=== PATIENT | male | born 1965 | race Hispanic/Latino ===

== ENCOUNTER 2016-05-11 11:43 | Emergency (ER) | payer MEDICAID ==
[2016-05-11 12:55] VITALS: BP 155/88
--- NOTE | 2016-05-11 16:39 | Emergency Department Report ---
Upper Extremity - [facility] Chief Complaint: Extremity Injury, Upper Stated Complaint: RT SHOULDER PAIN Upper Extremity: Right Shoulder Occurred When: Today Mechanism: Fall (50-year-old male that's challenged comes in for complaint of right shoulder pain status post fall this morning. He is brought in by his caregiver. Caregiver reports that the mother gave her reports that he had fallen now comes in with right shoulder pain.) ED Review of Systems ROS: Stated complaint: RT SHOULDER PAIN Other details as noted in HPI ED Past Medical Hx - Past Medical History Hx Seizures: Yes Additional medical history: spinal meningitis as a child - Surgical History Additional Surgical History: surgery to straighten right wrist as a teenager - Social History Smoking Status: Never Smoker Substance Use Type: None - Medications Home Medications: Home Medications Medication Instructions Recorded Confirmed Last Taken Type Divalproex ER [Depakote ER] 500 mg PO BID 03/22/13 11/09/15 11/09/15 History FLUoxetine [Prozac] 20 mg PO QDAY 03/22/13 11/09/15 11/09/15 History Hydrochlorothiazide 25 mg PO DAILY 03/22/13 11/09/15 11/09/15 History Lovastatin [Mevacor] 20 mg PO QPM 03/22/13 11/09/15 11/09/15 History OXcarbazepine [Trileptal] 900 mg PO BID 03/22/13 11/09/15 11/09/15 History risperiDONE [RisperDAL] 3 mg PO BID 03/22/13 11/09/15 11/09/15 History Ibuprofen [Motrin] 600 mg PO Q8H PRN #15 tablet 09/23/15 11/09/15 Unknown Rx Cephalexin [Keflex] 500 mg PO BID #10 capsule 11/10/15 Unknown Rx Upper Extremity Exam - Exam General: Vital signs noted. No distress. Alert and acting appropriately. Head and Torso: No HEENT Abnormality, No Neck Tenderness, No Chest/Lungs Abnormality, No Abdominal Tenderness, No Back Tenderness Shoulder Exam: Yes Shoulder Tenderness, Yes Clavicle Tenderness, Yes Shoulder Deformity, Yes AC Joint Tenderness, No Normal Range of Motion in Shoulder Forearm: No Forearm Tenderness Hand: Yes Hand Deformity (baseline contractions), No Hand Tenderness, No Normal ROM in Digit(s) (baseline contractions) CMS Exam: Yes Normal Distal Pulses, Yes Normal Capillary Refill, Yes Normal Distal Sensation, No Broken Skin ED Course Vital Signs 05/11/16 12:52 Temperature 98 F Pulse Rate 118 H Respiratory 18 Rate Blood Pressure 155/88 O2 Sat by Pulse 100 Oximetry ED Medical Decision Making - Radiology Data Radiology results: image reviewed FINAL REPORT PROCEDURE: XR SHOULDER 2 RT TECHNIQUE: Right shoulder, 2 views HISTORY: rt shoulder pain s/p fall COMPARISON: No prior studies are available for comparison. FINDINGS: No acute fracture or dislocation is seen. No focal osseous lesion is seen. IMPRESSION: No acute fracture or dislocation is identified - Medical Decision Making Patient's been evaluated by this provider in fast track. There is some obvious deformity of the right shoulder will go ahead and do an shoulder x-ray. When patient returns we'll offer pain management. Heart rates 94 Critical care attestation.: If time is entered above; I have spent that time in minutes in the direct care of this critically ill patient, excluding procedure time. ED Disposition Clinical Impression: Shoulder pain, right Qualifiers: Chronicity: acute Qualified Code(s): M25.511 - Pain in right shoulder Disposition: DISCHARGED TO HOME OR SELFCARE Is pt being admited?: No Does the pt Need Aspirin: No Condition: Stable Instructions: Fall Prevention for Older Adults (ED), Arthralgia (ED) Additional Instructions: Follow up with your Primary care provider
[2016-05-11] MEDS ORDERED: MOTRIN PO ONE (17:30)
--- NOTE | 2016-05-11 19:02 | XRay Report ---
FINAL REPORT PROCEDURE: XR SHOULDER 2 RT TECHNIQUE: Right shoulder, 2 views HISTORY: rt shoulder pain s/p fall COMPARISON: No prior studies are available for comparison. FINDINGS: No acute fracture or dislocation is seen. No focal osseous lesion is seen. IMPRESSION: No acute fracture or dislocation is identified
== END 2016-05-11 19:25 | disposition home or self-care (01) ==
LOC: ED 11:43
DX: M25.511 Pain in right shoulder (principal); R56.9 Unspecified convulsions
CPT/HCPCS: 99283

== ENCOUNTER 2017-10-16 11:39 | Emergency (ER) | payer MEDICAID ==
[2017-10-16 11:53] VITALS: BP 104/80
[2017-10-16] MEDS ORDERED: BOOSTRIX IM ONE (14:19)
[2017-10-16] MEDS ORDERED: XYLOCAINE 2% INFILTRATI ONE (14:20)
--- NOTE | 2017-10-16 14:25 | Emergency Department Report ---
ED Laceration HPI - HPI Chief Complaint: Wound/Laceration Stated Complaint: LACERATION/ARM Time Seen by Provider: 10/16/17 14:07 Occurred When: Today Location: Upper Extremity (left elbow) Severity: moderate Tetanus Status: Not up to Date Laceration Symptoms: Yes Pain, No Foreign Body Sensation, No Numbness, No Weakness Other History: This is a 52-year-old male that presents with multiple lacerations to the left elbow from hitting glass this morning around 845. Patient's mother and caregiver are at bedside. The caregiver reports patient got upset with her and punched L elbow through bathroom window. She noticed there were multiple lacerations to posterior and lateral elbow, she cleaned area with peroxide and water. They drove directly over to ER for evaluation. They are unsure of the last tetanus vaccination. Denies loss of consciousness, numbness or tingling, swelling, and fever. ED Review of Systems ROS: Stated complaint: LACERATION/ARM Other details as noted in HPI Constitutional: denies: chills, fever Respiratory: denies: cough, shortness of breath, wheezing Cardiovascular: denies: chest pain, palpitations Gastrointestinal: denies: abdominal pain, nausea, vomiting, diarrhea Skin: lesions (laceration to the left lateral and posterior elbow). denies: rash Neurological: denies: headache, weakness, numbness, paresthesias Psychiatric: denies: anxiety, depression ED Past Medical Hx - Past Medical History Hx Seizures: Yes Additional medical history: spinal meningitis as a child - Surgical History Additional Surgical History: surgery to straighten right wrist as a teenager - Social History Smoking Status: Never Smoker Substance Use Type: None - Medications Home Medications: Home Medications Medication Instructions Recorded Confirmed Last Taken Type Divalproex ER [Depakote ER] 500 mg PO BID 03/22/13 11/09/15 11/09/15 History FLUoxetine [Prozac] 20 mg PO QDAY 03/22/13 11/09/15 11/09/15 History Hydrochlorothiazide 25 mg PO DAILY 03/22/13 11/09/15 11/09/15 History Lovastatin [Mevacor] 20 mg PO QPM 03/22/13 11/09/15 11/09/15 History OXcarbazepine [Trileptal] 900 mg PO BID 03/22/13 11/09/15 11/09/15 History risperiDONE [RisperDAL] 3 mg PO BID 03/22/13 11/09/15 11/09/15 History Ibuprofen [Motrin] 600 mg PO Q8H PRN #15 tablet 09/23/15 11/09/15 Unknown Rx Cephalexin [Keflex] 500 mg PO BID #10 capsule 11/10/15 Unknown Rx Cephalexin [Keflex] 500 mg PO Q8HR 7 Days #21 cap 10/16/17 Unknown Rx Ibuprofen [Motrin 800 MG tab] 800 mg PO Q8HR PRN #15 tablet 10/16/17 Unknown Rx Laceration Physical Exam - Exam General: Vital signs noted. No distress. Alert and acting appropriately. Wound Length (cm): 2 Laceration Location: Upper Extremity (left lateral and posterior elbow) Full Body Front + Back: 1 - 2 cm laceration to left lateral elbow, into muscle, no active drainage, no surrounding cellulitis 2 - 1 cm superficial laceration to posterior elbow, no active bleeding or surrounding cellulitis Laceration Exam: Yes Normal Distal CMS, No Foreign Body, No Exposed Tendon, Vessel, or Nerve, No Tendon Injury ED Course Vital Signs 10/16/17 11:51 Temperature 97.8 F Pulse Rate 84 Respiratory 20 Rate Blood Pressure 104/80 O2 Sat by Pulse 97 Oximetry - Laceration /Wound Repair Left Lateral Elbow Wound Location: upper extremity Wound Length (cm): 2 (1 cm laceration below) Wound's Depth, Shape: into muscle Wound Explored: no foreign body removed Irrigated w/ Saline (ccs): 1 Betadine Prep?: Yes Anesthesia: 1% Lidocaine (2% lidocaine without epi) Volume Anesthetic (ccs): 1 Wound Repaired With: sutures Suture Size/Type: 4:0, proline Number of Sutures: 3 (1 suture below initial wound) Layer Closure?: No Sterile Dressing Applied?: Yes Left Medial Elbow Wound Location: upper extremity Wound Length (cm): 1 (1 cm below the left medial) Wound's Depth, Shape: superficial Wound Explored: clean Irrigated w/ Saline (ccs): 1 Betadine Prep?: Yes Anesthesia: 1% Lidocaine (2% lidocaine without epi) Volume Anesthetic (ccs): 1 Wound Repaired With: sutures Suture Size/Type: 4:0 Number of Sutures: 2 (1 suture below left medial laceration) Layer Closure?: No Sterile Dressing Applied?: Yes ED Medical Decision Making - Radiology Data Radiology results: report reviewed EXAM: XR ELBOW 3+V LT HISTORY: laceration left elbow r/o foreign object TECHNIQUE: 3 views of the left elbow PRIORS: None. FINDINGS: Dorsal olecranon degenerative enthesopathy is moderate. There is no radiographic evidence of definite acute fracture or dislocation. No definite misalignment. No evidence of osseous lesion. Joint spaces are maintained. No evidence of synovial joint effusion. There is no evidence of significant arthrosis. IMPRESSION: No acute skeletal pathology No radiographically visible radiopaque foreign body. - Medical Decision Making This is a 52 y.o. male presents with multiple lacerations to left elbow this morning. Patient examined by me. Vitals are normal. Patient is nontoxic appearing and stable. X-ray of left elbow obtained, No acute skeletal pathology. No radiographically visible radiopaque foreign body. Laceration closed with sutures, review note. Given tetanus vaccination while in the ER. Discharged home for outpatient treatment with Keflex and ibuprofen. Discussed ER care plan with patient and caregiver. Patient agreed with plan. Have sutures removed in 7-10 days. F/U with PCP in 2-3 days. Critical care attestation.: If time is entered above; I have spent that time in minutes in the direct care of this critically ill patient, excluding procedure time. ED Disposition Clinical Impression: Laceration of elbow Qualifiers: Encounter type: initial encounter Laterality: left Qualified Code(s): S51.012A - Laceration without foreign body of left elbow, initial encounter Disposition: DC- TO HOME OR SELFCARE Is pt being admited?: No Does the pt Need Aspirin: No Condition: Stable Instructions: Suture Care (ED), Laceration (ED) Additional Instructions: Take antibiotics as prescribed for the full course. Keep wound dry and clean for 48 hours. Avoid putting to much tension on wound site. Prop arm up on pillows to decrease swelling. Follow up with Primary Care Provider in 2-3 days. Have sutures removed in 7 days by primary care provider or in ER. Return to ER if red, swollen, foul discharge, or fever. Prescriptions: Cephalexin [Keflex] 500 mg PO Q8HR 7 Days #21 cap Ibuprofen [Motrin 800 MG tab] 800 mg PO Q8HR PRN #15 tablet PRN Reason: Pain, Moderate (4-6) Referrals: [facility] [Outside] - 3-5 Days [facility] [Outside] - 3-5 Days [facility] [Outside] - 3-5 Days Time of Disposition: 16:51 Print Language: CHINESE
--- NOTE | 2017-10-16 15:54 | XRay Report ---
FINAL REPORT EXAM: XR ELBOW 3+V LT HISTORY: laceration left elbow r/o foreign object TECHNIQUE: 3 views of the left elbow PRIORS: None. FINDINGS: Dorsal olecranon degenerative enthesopathy is moderate. There is no radiographic evidence of definite acute fracture or dislocation. No definite misalignment. No evidence of osseous lesion. Joint spaces are maintained. No evidence of synovial joint effusion. There is no evidence of significant arthrosis. IMPRESSION: No acute skeletal pathology No radiographically visible radiopaque foreign body.
== END 2017-10-16 17:22 | disposition home or self-care (01) ==
LOC: ED 11:39
DX: S51.012A Laceration without foreign body of left elbow, initial encounter (principal); W25.XXXA Contact with sharp glass, initial encounter; Y93.89 Activity, other specified; Y99.8 Other external cause status; Y92.091 Bathroom in other non-institutional residence as the place of occurrence of the external cause
CPT/HCPCS: 90471; 90715